=== PATIENT | female | born 1960 | race Hispanic/Latino ===

== ENCOUNTER 2016-08-28 11:09 | Outpatient (CLI) | payer MEDICAID ==
[2016-08-28 12:20] LABS: Blood Urea Nitrogen 16 mg/dL (7-17)
--- NOTE | 2016-08-28 15:39 | Cat Scan Report ---
CRANIAL CT WITH AND WITHOUT CONTRAST: HISTORY: Breast cancer with headache and multiple falls. FINDINGS: There is an area of encephalomalacia in the left posterior parietal lobe with ipsilateral ventriculomegaly ex-vacuo involving the occipital horn. This is unchanged compared to a study on February 18, 2015 and contains a persistent area of central calcification. No enhancement is seen after contrast. There are no additional enhancing masses within the brain parenchyma. No shift of the midline is seen. The ventricles are otherwise normal. There is no evidence of hemorrhage. The posterior fossa is normal. There are no extra-axial collections. The calvarium and visualized paranasal sinuses are unremarkable. IMPRESSION: 1. Chronic left posterior parietal infarct, stable since the previous study. 2. No evidence of metastatic disease.
== END 2016-08-28 11:10 | disposition home or self-care (01) ==
LOC: CT 11:09
PROVIDERS: ATTEND Internal Medicine Hematology & Oncology
DX: C50.111 Malignant neoplasm of central portion of right female breast (principal); R51 Headache; Z91.81 History of falling
CPT/HCPCS: 36415; 70470; 82565; 84520; Q9967

== ENCOUNTER 2017-02-16 12:49 | Outpatient (CLI) | payer MEDICAID ==
--- NOTE | 2017-02-18 07:38 | Vascular Lab Report ---
LOWER EXTREMITY VENOUS DUPLEX: REASON FOR EXAM: Swelling the lower extremities. COMMENTS ON THE RIGHT: All veins visualized are freely compressible without evidence of internal echogenicity. Flow is spontaneous and phasic throughout. COMMENTS ON THE LEFT: All veins visualized are freely compressible without evidence of internal echogenicity. Flow is spontaneous and phasic throughout. IMPRESSION: No evidence of acute or chronic deep venous thrombosis in either lower extremity.
== END 2017-02-16 12:50 | disposition home or self-care (01) ==
LOC: SPVWC 12:49
PROVIDERS: ATTEND Internal Medicine
DX: M79.604 Pain in right leg (principal); M79.605 Pain in left leg; M79.89 Other specified soft tissue disorders; J44.9 Chronic obstructive pulmonary disease, unspecified; J45.909 Unspecified asthma, uncomplicated; E78.00 Pure hypercholesterolemia, unspecified; F32.9 Major depressive disorder, single episode, unspecified; F17.210 Nicotine dependence, cigarettes, uncomplicated
CPT/HCPCS: 93970

== ENCOUNTER 2017-08-04 07:13 | Outpatient (CLI) | payer MEDICAID ==
--- NOTE | 2017-08-04 12:22 | Magnetic Resonance Report ---
MRI LUMBAR SPINE WITHOUT CONTRAST HISTORY: Lumbosacral spondylosis, radiculopathy. TECHNIQUE: axial T1, T2. sagittal T1,T2, STIR. COMPARISON: none. FINDINGS: The conus terminates at L1-2. No signal abnormality or mass. The cauda equina is within normal limits. No central canal stenosis. Normal height and alignment of the lumbar vertebra. The facet joints are in appropriate relationship. Normal bone marrow signal. No acute fracture or suspicious bone lesion. Mild disc desiccation without significant narrowing is noted throughout the lumbar region. The paraspinal soft tissues are unremarkable. L1-2: Within normal limits. L2-3: Within normal limits. L3-4: Within normal limits. L4-5: Within normal limits. L5-S1: Within normal limits. IMPRESSION: There is mild multilevel disc desiccation and minimal facet arthropathy. No evidence for significant bulging disc, herniation, central canal stenosis or neural foraminal impingement.
== END 2017-08-04 07:14 | disposition home or self-care (01) ==
LOC: MRI 07:13
PROVIDERS: ATTEND General Practice
DX: M47.27 Other spondylosis with radiculopathy, lumbosacral region (principal); M12.88 Other specific arthropathies, not elsewhere classified, other specified site; E78.00 Pure hypercholesterolemia, unspecified; J44.9 Chronic obstructive pulmonary disease, unspecified; K21.9 Gastro-esophageal reflux disease without esophagitis; J45.909 Unspecified asthma, uncomplicated
CPT/HCPCS: 72148

== ENCOUNTER 2018-02-15 09:20 | Outpatient (CLI) | payer MEDICAID ==
--- NOTE | 2018-02-16 10:20 | Vascular Lab Report ---
LOWER EXTREMITY ARTERIAL DUPLEX: REASON FOR EXAM: Peripheral arterial disease. COMMENTS ON THE RIGHT: Triphasic waveforms are seen proximally. Triphasic waveforms are seen distally. No significant velocity gradients are identified. No significant plaque is identified. Findings are consistent with normal perfusion. Findings are consistent with the ability to heal distal wounds. COMMENTS ON THE LEFT: Triphasic waveforms are seen proximally. Triphasic waveforms are seen distally. No significant velocity gradients are identified. No significant plaque is identified. Findings are consistent with normal perfusion. Findings are consistent with the ability to heal distal wounds. IMPRESSION: RIGHT: Essentially normal arterial flow. LEFT:Essentially normal arterial flow.
== END 2018-02-15 09:21 | disposition home or self-care (01) ==
LOC: VAS 09:20
PROVIDERS: ATTEND Internal Medicine
DX: I73.9 Peripheral vascular disease, unspecified (principal); F32.9 Major depressive disorder, single episode, unspecified; F41.9 Anxiety disorder, unspecified; F17.200 Nicotine dependence, unspecified, uncomplicated; E78.00 Pure hypercholesterolemia, unspecified; J43.9 Emphysema, unspecified; K21.9 Gastro-esophageal reflux disease without esophagitis; M19.90 Unspecified osteoarthritis, unspecified site; Z90.11 Acquired absence of right breast and nipple
CPT/HCPCS: 93925

== ENCOUNTER 2018-04-30 12:10 | Outpatient (CLI) | payer MEDICAID ==
--- NOTE | 2018-04-30 17:20 | Cat Scan Report ---
FINAL REPORT EXAM: CT ABDOMEN PELVIS W CON HISTORY: BREAST CANCER TECHNIQUE: CT examination of the ABDOMEN after IV contrast CT examination of the PELVIS after IV contrast PRIORS: None. FINDINGS: Nonspecific slight patchy density in the right anterior subpleural location. Slight degenerative change in the regional skeleton. Chronic appearing nonspecific smoothly marginated ossicle adjacent to the anterior margin of the left acetabulum. No evidence of acute fracture. No definite focal osseous lesion. Normal-appearing liver, gallbladder, adrenals, pancreas, and spleen. Intact normal caliber abdominal aorta with moderate calcified atherosclerotic plaque. Normal caliber IVC. Normal-appearing kidneys and ureters. Small fat containing midline ventral hernia just inferior to the umbilicus. Transverse dimension 21 mm. No retroperitoneal adenopathy. No evidence of mesenteric mass. Normal-appearing stomach and duodenum. No small bowel distention in the abdomen and pelvis. No pelvic free fluid. Normal-appearing urinary bladder, uterus, adnexae, and rectum. No gross ascites, free air, or colonic distention. Normal-appearing cecum, terminal ileum, and appendix. Minimal sigmoid diverticulosis in proximal sigmoid colon. No evidence of acute inflammation. IMPRESSION: No CT evidence of mass or adenopathy Nonspecific slight patchy subpleural density in the anterior right upper lobe may be scar or atelectasis. Small fat containing midline ventral hernia just inferior to the umbilicus Minimal proximal sigmoid diverticulosis
--- NOTE | 2018-04-30 17:29 | Cat Scan Report ---
FINAL REPORT EXAM: CT CHEST W CON HISTORY: BREAST CANCER TECHNIQUE: CT examination of the chest after IV contrast PRIORS: None. FINDINGS: Absent breast tissue bilaterally. Normal cardiac size without pericardial effusion. Intact normal caliber thoracic aorta. Normal-appearing esophagus. No hilar mass or mediastinal adenopathy. The visualized pulmonary arteries are diffusely patent bilaterally. There is no filling defect to suggest PE. Slight degenerative change in the regional skeleton. No evidence of acute fracture or significant osseous lesion. Bilateral lung apex subpleural chronic appearing pneumatoceles, relatively unchanged from 2016. No pneumothorax or pleural effusion. No focal pulmonary consolidation. No evidence of lung mass or pulmonary nodule. Nonspecific slight subpleural interstitial density is noted in the anterior aspect of the right upper lobe and right middle lobe. This may be scarring or atelectasis. It is new from 2016 and may reflect pneumonitis. IMPRESSION: New slight subpleural interstitial and patchy density in the anterior right middle lobe and right upper lobe may be scar or atelectasis. Differential includes pneumonitis No CT evidence of mass or adenopathy
== END 2018-04-30 12:11 | disposition home or self-care (01) ==
LOC: CT 12:10
PROVIDERS: ATTEND Internal Medicine Hematology & Oncology
DX: C50.111 Malignant neoplasm of central portion of right female breast (principal); J18.9 Pneumonia, unspecified organism; K57.90 Diverticulosis of intestine, part unspecified, without perforation or abscess without bleeding; K43.9 Ventral hernia without obstruction or gangrene; E78.00 Pure hypercholesterolemia, unspecified; J43.9 Emphysema, unspecified; K21.9 Gastro-esophageal reflux disease without esophagitis; M19.90 Unspecified osteoarthritis, unspecified site; E03.9 Hypothyroidism, unspecified; F17.210 Nicotine dependence, cigarettes, uncomplicated; Z90.89 Acquired absence of other organs; Z90.12 Acquired absence of left breast and nipple
CPT/HCPCS: 71260; 74177; Q9967

== ENCOUNTER 2018-05-06 10:10 | Day surgery (SDC) | payer MEDICAID ==
[2018-05-06] MEDS ORDERED: ANCEF/STERILE WATER 2 GM/20 ML IV NR (12:00)
[2018-05-06] MEDS ORDERED: LACTATED RINGERS 1,000 ML ONE (12:45)
[2018-05-06] MEDS ORDERED: VERSED IV NR (13:00)
[2018-05-06] MEDS ORDERED: LACTATED RINGERS 1,000 ML IV SCH (13:00)
[2018-05-06] MEDS ORDERED: SUBLIMAZE IV PRN (13:23)
--- NOTE | 2018-05-06 13:23 | Anesthesia Day of Surgery ---
Anesthesia Day of Surgery - Day of Surgery Patient Examined: Yes Patient H&P Reviewed: Yes Patient is NPO: Yes
--- NOTE | 2018-05-06 13:23 | Anesthesia Consultation ---
Anesthesia Consult and Med Hx Date of service: 05/06/18 - Airway Anesthetic Teeth Evaluation: Poor (multiple chipped teeth and many have "fallen out") ROM Head & Neck: Adequate Mental/Hyoid Distance: Adequate Mallampati Class: Class II Intubation Access Assessment: Probably Good - Pulmonary Exam CTA: Yes - Cardiac Exam Cardiac Exam: RRR - Pre-Operative Health Status ASA Pre-Surgery Classification: ASA3 Proposed Anesthetic Plan: MAC - Pulmonary Hx Smoking: Yes (CIGARETTES 1 PPD X 47 YRS, QUIT WHILE GOING THROUGH [place]) Hx Asthma: Yes (used inhaler this morning) COPD: Yes Home Oxygen Therapy: No - Cardiovascular System Hx Heart Attack/AMI: No Hx Cardia Arrhythmia: No - Central Nervous System Hx Seizures: No CVA: No Hx Back Pain: Yes Hx Psychiatric Problems: Yes (anxiety/depression) - Gastrointestinal Hx Gastroesophageal Reflux Disease: Yes (asymptomatic today) - Endocrine Hx Renal Disease: No Hx Liver Disease: No Hx Insulin Dependent Diabetes: No Hx Non-Insulin Dependent Diabetes: No Hx Hypothyroidism: Yes - Other Systems Hx Alcohol Use: Yes (OCCAS) Hx Substance Use: No Hx Cancer: Yes (breast) Hx Obesity: No - Additional Comments Anesthesia Medical History Comments: PMH sjogren's syndrome, COPD/asthma, 50pk yr smoking, hypothyroidism, GERD, fibromyalgia. No hx anesthetic complications.
[2018-05-06] MEDS ORDERED: DIPRIVAN 10 MG/ML IV ONE (14:51)
[2018-05-06] MEDS ORDERED: SUBLIMAZE ONE (14:51)
[2018-05-06] MEDS ORDERED: XYLOCAINE MPF 2% ONE (14:53)
--- NOTE | 2018-05-06 15:09 | Short Stay Summary ---
Short Stay Documentation Date of service: 05/06/18 - History H&P: obtained from office - Allergies and Medications Current Medications: Allergies No Known Allergies Allergy (Verified 05/03/18 16:10) Home Medications Medication Instructions Recorded Confirmed Last Taken Type ALBUTEROL NEB's [Proventil] 2.5 mg IH TID PRN 05/03/18 05/03/18 Unknown History Albuterol Sulfate [Ventolin HFA] 2 puff IH Q4H PRN 05/03/18 05/06/18 05/06/18 08 :45 History Cholecalciferol (Vitamin D3) 50,000 units PO QWEEK 05/03/18 05/03/18 Unknown History [Vitamin D3] Fluticasone [Flonase] 1 spray NS QDAY 05/03/18 05/03/18 Unknown History Fluticasone/Salmeterol [Advair 1 each IH DAILY 05/03/18 05/06/18 05/06/18 09:30 History 250-50 Diskus] Gabapentin [Gralise] 600 mg PO QDAY 05/03/18 05/03/18 Unknown History Lactulose 10 mg PO DAILY 05/03/18 05/03/18 Unknown History Letrozole (Nf) [Femara (Nf)] 2.5 mg PO QDAY 05/03/18 05/03/18 Unknown History Levothyroxine [Synthroid] 25 mcg PO QAM 05/03/18 05/06/18 05/06/18 08:00 History PARoxetine [Paxil] 20 mg PO DAILY 05/03/18 05/06/18 05/06/18 08:00 History RX: ALPRAZolam [Xanax TAB] 1 mg PO PRN PRN 05/03/18 05/06/18 05/06/18 09:30 History RX: Diclofenac Sodium 100 gm TP PRN PRN 05/03/18 05/03/18 Unknown History RX: Levothyroxine Sodium 200 mcg PO QAM 05/03/18 05/06/18 05/06/18 08:00 History RX: hydrOXYzine HCl [Hydroxyzine 25 mg PO DAILY 05/03/18 05/03/18 Unknown History HCl] cloNIDine [Catapres] 0.1 mg PO DAILY 09/17/18 09/20/18 09/18/18 History oxyCODONE /ACETAMINOPHEN [Percocet 1 tab PO Q6HR PRN 05/03/18 05/03/18 Unknown History 5/325] Active Medications Fentanyl (Sublimaze) 50 mcg IV Q15MIN PRN PRN Reason: Pain , Severe (7-10) Stop: 05/07/18 06:22 Lactated Ringer's (Lactated Ringers) 1,000 mls @ 100 mls/hr IV DIRECT MIGUEL Last Admin: 05/06/18 13:02 Dose: 100 mls/hr Midazolam HCl (Versed) 2 mg IV PREOP NR Stop: 05/06/18 23:59 Last Admin: 05/06/18 13:06 Dose: 2 mg - Brief post op/procedure progress note Date of procedure: 05/06/18 Pre-op diagnosis: Left port with central venous access not indicated Post-op diagnosis: same Procedure: Left port removal Anesthesia: MAC Findings: Removal of left port in its entirety Surgeon: OUMOU MURCIA Estimated blood loss: minimal Pathology: none Specimen disposition: discarded Condition: stable - Disposition Condition at discharge: Good Disposition: DC-01 TO HOME OR SELFCARE Short Stay Discharge Plan Activity: other (no heavy lifting) Diet: regular Wound: other (may shower in 48 hours; no baths; do not rub incision) Follow up with: ETELVINA QUINN MD [Primary Care Provider] - 7 Days OUMOU MURCIA MD [Staff Physician] - 7 Days
--- NOTE | 2018-05-06 15:13 | Operative Report ---
Operative Report Operative Report: Date of Service: May 06, 2018 Properative diagnosis: Left port with central venous access not indicated Postoperative diagnosis: Same Procedure: Left port removal Surgeon: Bridgette Pena MD Anesthesia: Local MAC Findings: Removal of left port in its entirety Complications: None Drain: None Disposition: PACU in good condition Indications for operative procedure: This is a 58-year-old lady with a personal history of bilateral breast cancer. Patient has completed neoadjuvant chemotherapy and central venous access no longer indicated. Patient wished to proceed with port removal. Procedure in detail: Patient was taken to the operating procedure room. She was laid supine. Local MAC anesthesia was administered. The port was identified of the left chest.The left chest was prepped and draped in the normal sterile operative fashion. The skin was anesthetized with 1% lidocaine mix with quarter percent Marcaine. The prior port incision was opened with a 15 blade knife and taken down to the subcutaneous tissues. The port was encountered. The catheter was encountered and was appropriately dissected free and removed in its entirety. Then proceed with port removal with dissection of scar tissue around the port. The port was removed in its entirety without any complications. Hemostasis was obtained. The subcutanoeus tisses were brought together and closed with interrupted 3-0 Vicryl followed by closing of the skin with a running 4-0 Monocryl. She tolerated the procedure very well and was transferred to PACU in good condition.
[2018-05-06] MEDS ORDERED: XYLOCAINE 1% 20 mL ONE (15:19)
[2018-05-06] MEDS ORDERED: MARCAINE 0.25% INFILTRATI ONE ×2 (15:20→15:29)
[2018-05-06] MEDS ORDERED: VERSED IV ONE (15:22)
[2018-05-06] MEDS ORDERED: XYLOCAINE 1% 20 mL INFILTRATI ONE (15:29)
[2018-05-06 16:28] VITALS: BP 101/56
== END 2018-05-06 16:50 | disposition home or self-care (01) ==
LOC: OR 10:10
PROVIDERS: ATTEND Surgery
DX: Z45.2 Encounter for adjustment and management of vascular access device (principal); D72.829 Elevated white blood cell count, unspecified; E78.00 Pure hypercholesterolemia, unspecified; J43.9 Emphysema, unspecified; F17.210 Nicotine dependence, cigarettes, uncomplicated; K21.9 Gastro-esophageal reflux disease without esophagitis; M19.90 Unspecified osteoarthritis, unspecified site; E03.9 Hypothyroidism, unspecified; F32.9 Major depressive disorder, single episode, unspecified; F41.9 Anxiety disorder, unspecified; Z72.89 Other problems related to lifestyle; Z85.3 Personal history of malignant neoplasm of breast; Z79.899 Other long term (current) drug therapy; Z90.13 Acquired absence of bilateral breasts and nipples; Z98.51 Tubal ligation status; Z98.891 History of uterine scar from previous surgery
CPT/HCPCS: 36590; 88302; J0690; J2250; J2704; J3010; J7120

== ENCOUNTER 2019-01-27 14:06 | Outpatient (CLI) | payer MEDICAID ==
--- NOTE | 2019-01-27 16:17 | Mammography Report ---
BONE DEXA:01/27/19 14:06:00 CLINICAL: Postmenopausal.History of breast cancer status post bilateral mastectomy and on an aromatase inhibitor. TECHNIQUE: Two site bone DEXA performed on an Hologic scanner. FINDINGS: The average BMD of the lumbar spine L1-L4 is 0.812g/cm squared with a T-score of -2.1 and a Z-score of -1.0. The average BMD of the left hip is 0.773g/cm squared with a T-score of -1.4 and a Z-score of -0.6. The lateral neck BMD is 0.595g/cm squared with a T score of -2.3 and a Z score of -1.2 IMPRESSION: WHO classification: Osteopenia with increased fracture risk based on both lumbar spine and left femoral neck measurements. RECOMMENDATION: Clinical correlation and routine screening. DEFINITIONS: BMD = Bone Mineral Density T-score = BMD related to mean peak bone mass of young adult (mean expressed in Standard Deviation) Z-score = Age matched BMD expressed in SD World Health Organization (WHO) Diagnostic Criteria Normal T-score > -1 SD Osteopenia T-score between -1 and -2.4 SD Osteoporosis T-score -2.5 SD or below NOTE: BMD is not the only risk factor for fracture. One should also consider factors such as the patient's age, risk of falling, previous osteoporotic fracture, family history of osteoporotic fractures, current smoker, and low body weight. Z-scores are not calculated if >80 years of age.
== END 2019-01-27 14:07 | disposition home or self-care (01) ==
LOC: SPVWC 14:06
PROVIDERS: ATTEND Internal Medicine Hematology & Oncology
DX: M85.88 Other specified disorders of bone density and structure, other site (principal); C50.111 Malignant neoplasm of central portion of right female breast; E78.00 Pure hypercholesterolemia, unspecified; J43.9 Emphysema, unspecified; Z78.0 Asymptomatic menopausal state; Z79.811 Long term (current) use of aromatase inhibitors; Z90.89 Acquired absence of other organs
CPT/HCPCS: 77080

== ENCOUNTER 2020-08-14 07:53 | Outpatient (CLI) | payer MEDICAID ==
--- NOTE | 2020-08-14 10:41 | Magnetic Resonance Report ---
MRI BRAIN 08/14/2020 INDICATION / CLINICAL INFORMATION: MEMORY LOSS. TECHNIQUE: Multiplanar, multisequence MR images of the brain were obtained. COMPARISON: CT brain 08/28/2016 FINDINGS: BRAIN / INTRACRANIAL CONTENTS: Unenhanced MR images of the brain were obtained and compared to a prio r CT brain from 08/28/2016. There is no evidence of acute abnormality. There is a focal 1.5 cm area of cortical encephalomalacia in the left parieto-occipital cortex, associated with some evidence of calcification, similar to the appearance on the prior CT. There is no evidence of acute ischemic injury, hemorrhage, or mass. There are no abnormal extra-axial fluid collections. Ventricles and sulci are normal in size and shape. EXTRACRANIAL: Unremarkable CRANIOCERVICAL JUNCTION: No significant abnormality. VASCULAR FLOW-VOIDS: No significant abnormality. IMPRESSION: No acute abnormality. Chronic left occipital cortical encephalomalacia, consistent with prior brain injury or ischemia. Dys trophic calcification noted on the earlier CT scan corresponds to susceptibility alteration on MRI as would be expected. Signer Name: Basilio Kaminski MD Signed: 08/14/2020 10:37 AM Workstation Name: [id number]
== END 2020-08-14 07:54 | disposition home or self-care (01) ==
LOC: MRI 07:53
PROVIDERS: ATTEND Internal Medicine
DX: R41.9 Unspecified symptoms and signs involving cognitive functions and awareness (principal); G31.09 Other frontotemporal neurocognitive disorder
CPT/HCPCS: 70551

== ENCOUNTER 2020-09-06 08:25 | Outpatient (CLI) | payer MEDICAID ==
[2020-09-06 10:14] LABS: Blood Urea Nitrogen 16 mg/dL (7-17)
--- NOTE | 2020-09-06 12:34 | Cat Scan Report ---
CT CHEST, ABDOMEN, AND PELVIS WITH IV CONTRAST INDICATION: BREAST CANCER. TECHNIQUE: Axial CT images were obtained through the chest, abdomen, and pelvis with IV contrast. All CT scans a t this location are performed using CT dose reduction for ALARA by means of automated exposure contro l. COMPARISON: 04/30/2018 FINDINGS: HEART: No significant change. THORACIC AORTA: No significant change with mild scattered atherosclerotic calcification. MEDIASTINUM and STELLA: No significant abnormality. LUNGS: Biapical pleural thickening with prominent pleural-based thickening along the anterior aspect of the right upper lobe, unchanged.. PLEURA: No change, as above. No pneumothorax. ADDITIONAL CHEST FINDINGS: Bilateral mastectomy.. LIVER: No significant abnormality. GALLBLADDER: No significant abnormality. BILE DUCTS: No significant abnormality. PANCREAS: No significant abnormality. SPLEEN: No significant abnormality. ADRENALS: No significant abnormality. RIGHT KIDNEY and URETER: No significant abnormality. LEFT KIDNEY and URETER: No significant abnormality. STOMACH and SMALL BOWEL: No significant abnormality. COLON: No significant abnormality. Few colonic diverticula APPENDIX: Not well identified. PERITONEUM: No free fluid. No free air. No fluid collection. LYMPH NODES: No significant adenopathy. AORTA and ARTERIES: Severe atherosclerotic calcification throughout much of the abdominal aorta. No a neurysm appreciated at this time.. IVC and VEINS: No significant abnormality. URINARY BLADDER: No significant abnormality. REPRODUCTIVE ORGANS: No significant abnormality. ADDITIONAL FINDINGS: Small fat-containing periumbilical hernia measuring about 2.4 cm in diameter.. SKELETAL SYSTEM: No significant abnormality. IMPRESSION: No convincing evidence of metastatic disease. No significant change when compared to the prior exam f rom 04/30/2018. Signer Name: Jason Babcock MD Signed: 09/06/2020 12:28 PM Workstation Name: [id number]
--- NOTE | 2020-09-06 12:40 | Nuclear Medicine Report ---
NUCLEAR MEDICINE BONE SCAN, WHOLE BODY INDICATION: BREAST CANCER. TECHNIQUE: 26.1 mCi of Tc-99m MDP were injected IV. Whole body images were obtained. COMPARISON: Bone scan dated 02/07/2016. FINDINGS: Skeletal Structures: There is uptake at the sternomanubrial junction which is likely related to degen erative change. This was present previously. There is uptake at the costochondral junction of the fir st rib bilaterally as well as in the AC joints bilaterally characteristic of degenerative type change . Skeletal Lesions: None. Soft Tissues: Normal. Kidneys: Normal, symmetric activity. Additional Findings: None. IMPRESSION: 1. No metastatic disease is identified. The uptake at the sternomanubrial junction, ends of the first ribs and in the AC joints is all likely degenerative.. Signer Name: Daryl Santiago MD Signed: 09/06/2020 12:34 PM Workstation Name: [id number]
== END 2020-09-06 08:26 | disposition home or self-care (01) ==
LOC: NM 08:25
PROVIDERS: ATTEND Internal Medicine Hematology & Oncology
DX: C50.111 Malignant neoplasm of central portion of right female breast (principal); D72.829 Elevated white blood cell count, unspecified; K57.30 Diverticulosis of large intestine without perforation or abscess without bleeding; I70.0 Atherosclerosis of aorta; K42.9 Umbilical hernia without obstruction or gangrene
CPT/HCPCS: 36415; 71260; 74177; 78306; 82565; 84520; A9503; Q9967

== ENCOUNTER 2020-10-02 06:00 | Day surgery (SDC) | payer MEDICAID ==
[2020-09-26 11:59] LABS: Hematocrit 41.6 % (30.3-42.9); Hemoglobin 14.1 gm/dl (10.1-14.3); Mean Corpuscular HGB Conc 34 % (30-34); Mean Corpuscular Volume 88 fl (79-97); Platelet Count 299 K/mm3 (140-440); Red Blood Count 4.72 M/mm3 (3.65-5.03); Red Cell Distribution Width 14.4 % (13.2-15.2)
[2020-09-26 12:25] LABS: Alanine Aminotransferase 31 units/L (7-56); Albumin 4.4 g/dL (3.9-5); Blood Urea Nitrogen 15 mg/dL (7-17); Calcium 9.7 mg/dL (8.4-10.2); Hemolysis Index 3
[2020-09-26 12:27] LABS: BUN/Creatinine Ratio 30
[~2020-10-02 06:00] MED LIST: ACETAMINOPHEN 500 MG TAB PO SCH; ALBUTEROL 2.5 MG/3 ML NEBU IH PRN; GABAPENTIN 300 MG CAP PO NR; LACTATED RINGERS 1,000 ML IV SCH; MIDAZOLAM 2 MG/2 ML INJ IV NR; SCOPOLAMINE TRANSDERMAL PATCH 72 HR TD NR
[2020-10-02] MEDS ORDERED: BACTERIOSTATIC SODIUM CHLORIDE 0.9% 30 ML VIAL INFILTRATI ONE (06:17)
[2020-10-02] MEDS ORDERED: ceFAZolin/STERILE WATER 2 GM/20 ML SYRINGE IV NR (07:00)
[2020-10-02] MEDS ORDERED: fentaNYL 100 MCG/2 ML INJ IV NR (07:07)
[2020-10-02] MEDS ORDERED: ONDANSETRON 4 MG/2 ML INJ IV PRN (07:12)
[2020-10-02] MEDS ORDERED: fentaNYL 100 MCG/2 ML INJ IV PRN (07:12)
--- NOTE | 2020-10-02 07:15 | Anesthesia Consultation ---
Anesthesia Consult and Med Hx Date of service: 10/02/20 - Airway Anesthetic Teeth Evaluation: Edentulous ROM Head & Neck: Adequate Mental/Hyoid Distance: Adequate Mallampati Class: Class I Intubation Access Assessment: Good - Pulmonary Exam CTA: Yes - Cardiac Exam Cardiac Exam: RRR - Pre-Operative Health Status ASA Pre-Surgery Classification: ASA3 Proposed Anesthetic Plan: General Nerve Block: TAP - Pulmonary Hx Smoking: Yes (>50 pk yr hx) Hx Asthma: Yes (albuterol prn) COPD: Yes (albuterol prn) Hx Sleep Apnea: No (ROSS PRE SCREEN LOW RISK) - Cardiovascular System Hx Hypertension: No Hx Heart Attack/AMI: No Hx Percutaneous Transluminal Coronary Angioplasty (PTCA): No Hx Cardia Arrhythmia: No - Central Nervous System Hx Neuromuscular Disorder: (Sjogren's Syndrome) CVA: Yes ("brain bleeding" >10yrs ago; no residual defecits) Hx Back Pain: Yes (fibromyalgia) Hx Psychiatric Problems: Yes (anxiety/depression; took xanax this morning) - Gastrointestinal Hx Gastroesophageal Reflux Disease: Yes (took PPI this morning) - Endocrine Hx Renal Disease: No Hx Liver Disease: No Hx Insulin Dependent Diabetes: No Hx Non-Insulin Dependent Diabetes: No Hx Hypothyroidism: Yes - Other Systems Hx Cancer: Yes (hx breast ca) - Additional Comments Anesthesia Medical History Comments: Hx Sjogren's syndrome. Hx mild PONV. Prophylactic albuterol neb given in preop.
--- NOTE | 2020-10-02 07:15 | Anesthesia Day of Surgery ---
Anesthesia Day of Surgery - Day of Surgery Patient Examined: Yes Patient H&P Reviewed: Yes Patient is NPO: Yes
[2020-10-02] MEDS ORDERED: LIDOCAINE (1%) 10 MG/1 ML VIAL 20 ML MDV ONE (07:18)
[2020-10-02] MEDS ORDERED: fentaNYL 100 MCG/2 ML INJ ONE (07:18)
[2020-10-02] MEDS ORDERED: HYDROmorphone 1 MG/1 ML INJ ONE (07:18)
[2020-10-02] MEDS ORDERED: BUPIVACAINE/PF (0.5%) 5 MG/1 ML 30 ML VIAL INFILTRATI ONE (07:18)
[2020-10-02] MEDS ORDERED: propofoL 200 MG/20 ML VIAL IV ONE (07:18)
[2020-10-02] MEDS ORDERED: BUPIVACAINE-EPINEPHRINE/PF 0.5%-1:200,000 (30 ML) VIAL INFILTRATI ONE (07:20)
[2020-10-02] MEDS ORDERED: SODIUM CHLORIDE 0.9% 500 ML 500 ML ONE (07:20)
[2020-10-02] MEDS ORDERED: dexAMETHasone 4 MG/ML VIAL ONE (07:20)
[2020-10-02] MEDS ORDERED: ONDANSETRON 4 MG/2 ML INJ ONE (08:30)
[2020-10-02] MEDS ORDERED: WATER FOR IRRIG STERILE 1,500 ML BOTTLE IR ONE (08:30)
[2020-10-02] MEDS ORDERED: GLYCOPYRROLATE 0.4 MG/2 ML INJ ONE (08:30)
[2020-10-02] MEDS ORDERED: NEOSTIGMINE 10MG/10 ML INJ MDV ONE (08:30)
[2020-10-02] MEDS ORDERED: LIDOCAINE PF 100 MG/5 ML (CARDIAC SYRINGE) IV ONE (08:35)
[2020-10-02] MEDS ORDERED: ROCURONIUM 50 MG/5 ML INJ IV ONE (08:35)
[2020-10-02] MEDS ORDERED: SUCCINYLCHOLINE CHLORIDE 200 MG/10 ML INJ MDV ONE (08:36)
[2020-10-02] MEDS ORDERED: PHENYLEPHRINE/NS 1,000 MCG/10 ML SYRINGE (OR USE) IV ONE (08:36)
[2020-10-02] MEDS ORDERED: dexAMETHasone 20 MG/5 ML VIAL ONE (08:36)
--- NOTE | 2020-10-02 10:12 | Short Stay Summary ---
Short Stay Documentation Date of service: 10/02/20 - History Principal diagnosis: incisional hernia H&P: obtained from office - Allergies and Medications Current Medications: Allergies No Known Allergies Allergy (Verified 05/03/18 16:10) Home Medications Medication Instructions Recorded Confirmed Last Taken Type ALPRAZolam [Xanax TAB] 1 mg PO BID 05/03/18 09/25/20 10/02/20 05:00 History Albuterol Sulfate [Ventolin HFA] 2 puff IH Q4H PRN 05/03/18 09/25/20 1 Month Ago History ~09/01/20 Cholecalciferol (Vitamin D3) 50,000 units PO QWEEK 05/03/18 09/25/20 1 Month Ago History [Vitamin D3] ~09/01/20 Fluticasone [Flonase] 1 spray NS QDAY 05/03/18 09/25/20 10/01/20 History Letrozole (Nf) [Femara (Nf)] 2.5 mg PO QDAY 05/03/18 09/25/20 10/02/20 05:00 History Levothyroxine Sodium 225 mcg PO QAM 05/03/18 09/25/20 10/02/20 05:00 History Acetaminophen/Codeine [Tylenol 1 tab PO Q4HR PRN 09/25/20 09/25/20 10/01/20 History /Codeine # 3 tab] Cyclobenzaprine [Flexeril] 10 mg PO TID PRN 09/25/20 09/25/20 10/02/20 05:00 History FLUoxetine [PROzac] 20 mg PO QDAY 09/25/20 09/25/20 10/02/20 05:00 History Linaclotide [Linzess] 145 mcg PO QDAY 09/25/20 09/25/20 10/02/20 05:00 History Pantoprazole [Protonix] 40 mg PO QDAY 09/25/20 09/25/20 10/02/20 05:00 History Varenicline Tartrate [Chantix] 1 mg PO DAILY 09/25/20 09/25/20 10/01/20 History Active Medications Acetaminophen (Acetaminophen 500 Mg Tab) 1,000 mg PO PREOP MIGUEL Stop: 10/02/20 23:00 Last Admin: 10/02/20 06:55 Dose: 1,000 mg Documented by: Albuterol (Albuterol 2.5 Mg/3 Ml Nebu) 2.5 mg IH PREOP PRN PRN Reason: Wheezing Stop: 10/02/20 23:00 Last Admin: 10/02/20 07:00 Dose: 2.5 mg Documented by: Cefazolin Sodium (Cefazolin/Sterile Water 2 Gm/20 Ml Syringe) 2 gm IV PREOP NR Stop: 10/02/20 23:00 Fentanyl (Fentanyl 100 Mcg/2 Ml Inj) 100 mcg IV ONCE NR Stop: 10/02/20 20:00 Last Admin: 10/02/20 07:31 Dose: 100 mcg Documented by: Fentanyl (Fentanyl 100 Mcg/2 Ml Inj) 50 mcg IV Q5MIN PRN PRN Reason: Pain , Severe (7-10) Stop: 10/02/20 23:00 Gabapentin (Gabapentin 300 Mg Cap) 300 mg PO PREOP NR Stop: 10/02/20 23:00 Last Admin: 10/02/20 06:55 Dose: 300 mg Documented by: Lactated Ringer's (Lactated Ringers) 1,000 mls @ 100 mls/hr IV DIRECT MIGUEL Stop: 10/02/20 23:59 Last Admin: 10/02/20 07:00 Dose: 100 mls/hr Documented by: Midazolam HCl (Midazolam 2 Mg/2 Ml Inj) 2 mg IV PREOP NR Stop: 10/02/20 23:00 Last Admin: 10/02/20 07:31 Dose: 2 mg Documented by: Ondansetron HCl (Ondansetron 4 Mg/2 Ml Inj) 4 mg IV ONCE PRN PRN Reason: Nausea And Vomiting Stop: 10/02/20 16:00 Scopolamine (Scopolamine Transdermal Patch 72 Hr) 1 each TD PREOP NR Stop: 10/02/20 23:00 Last Admin: 10/02/20 06:50 Dose: 1 each Documented by: - Brief post op/procedure progress note Date of procedure: 10/02/20 Pre-op diagnosis: incisional hernia Post-op diagnosis: same Procedure: robotic assisted incisional hernia repair with mesh Anesthesia: GETA, other (tap block) Findings: 3 x 2cm infraumbilical incisional hernia containing incarcerated omentum and preperitoneal fat Repaired with 11.[address] composite mesh Surgeon: LESIA PINO Rail Signal Mechanic: CHACHA SIMEON Estimated blood loss: minimal Pathology: none Condition: stable - Hospital course Hospital course: Pt observed in PACU and discharged to home in stable condition - Disposition Condition at discharge: Good Disposition: DC-01 TO HOME OR SELFCARE Short Stay Discharge Plan Activity: other (see additional instructions) Diet: regular Wound: open to air, per your surgeon's advice Additional Instructions: General Surgery Patient discharge instructions You have undergone surgery to repair an abdominal hernia Diet: Regular diet Make sure to drink plenty of water and stay hydrated Activity: You are encouraged to walk and may go up and down the steps. [address]. [address] if you are taking prescription, narcotic pain medications. 2. Do not do any heavy lifting greater than 15 lbs for next 6 week 3. Wear abdominal binder at all times except during shower and sleep. Do not smoke cigarettes - this can negatively affect wound healing after surgery. Showering: You may shower tomorrow. Remove outer dressing in 2 days. Pat incision dry, do not scrub. Do not submerge incision in bathtub, pool, hottub for 2 weeks. Wound care instructions: There is glue on your incisions which will fall off on its own. Pain medications: You may use over the counter Tylenol or ibuprofen for pain. If your pain is not controlled with these medications, you have been given a prescription for Percocet. You have also been given prescription for gabapentin - take as prescribed. If you have any unused prescription pain medication, please return to your pharmacy to have is discarded. You may use ice pack to incisions to help with pain and bruising. Reasons to call Surgeons office: If you have fevers >100.4 If you are having increasing abdominal pain or vomiting If you have pain that is not controlled with prescription pain medications If you have drainage if pus or redness around the incisions. When to come back to see your Surgeon: Please call the office ([phone]) to make an appointment to see the surgeon in 2 week. Call if you have any questions. [facility] Ground floor Follow up with: ETELVINA QUINN MD [Primary Care Provider] - 7 Days LESIA PINO DO [Staff Physician] - 14 Days Prescriptions: Gabapentin 300 mg PO BID 3 Days #6 capsule oxyCODONE /ACETAMINOPHEN [Percocet 5/325] 1 tab PO Q6HR PRN #20 tablet PRN Reason: Pain , Severe (7-10)
[2020-10-02] MEDS ORDERED: oxyCODONE /ACETAMINOPHEN 5-325MG TAB PO PRN (10:30)
--- NOTE | 2020-10-02 10:46 | Post Anesthesia Evaluation ---
- Post Anesthesia Evaluation Patient Participated: Yes Airway Patent: Yes Stable Respiratory Function: Yes Nausea/Vomiting: No Temp > 96.8F: Yes Pain Manageable: Yes Adequeate Hydration: Yes Anesthesia Complications: No Block Receding Appropriately: Yes (block for post op analgesia)
[2020-10-02 10:57] VITALS: BP 108/53
--- NOTE | 2020-10-02 13:06 | Operative Report ---
Operative Report Operative Report: Date of procedure: 10/02/20 Pre-op diagnosis: incisional hernia Post-op diagnosis: same Procedure: robotic assisted incisional hernia repair with mesh Anesthesia: REBAA, other (tap block) Findings: 3 x 2cm infraumbilical incisional hernia containing incarcerated omentum and preperitoneal fat Repaired with 11.[address] composite mesh Surgeon: LESIA PINO Urologist: CHACHA SIMEON Estimated blood loss: minimal Pathology: none Condition: stable - Hospital course Hospital course: Pt observed in PACU and discharged to home in stable condition HPI and indication: 60 yo F with hx of csection who presents to surgery clinic for evaluation of a bulge at her infraumbilical midline incision. This bulge has been present for some time and is causing pain. Patient found to have reducible incisional hernia on exam. It was recommended that the hernia be repaired. Patient is a smoker and smoking cessation was also recommended at least 2 weeks prior to surgery. She was agreeable. All risk, benefits, alternatives surgery discussed with patient questions answered. It was recommended that the hernia be repaired robotically. Alternatives such as open versus laparoscopic repair were also discussed. The patient was in agreement and consent obtained. Procedure in detail: The patient was identified in the preoperative area and taken back to the operating room and placed on the operating room table in supine position. After anesthesia was induced, both arms were tucked with all bony prominences padded appropriately. The abdomen was then prepped and draped in usual sterile fashion and a timeout was performed. The patient had a TAP block performed by anesthesia preoperatively. A trell incision was made in the left upper quadrant at Ray's point through which a Veress needle was inserted. The Veress needle position was confirmed using the saline drop test and the abdomen insufflated to 15 mmHg without incident. A 5 mm incision was made in the right upper quadrant through which a 5 mm Optiview trocar was placed under direct visualization. The abdomen was inspected and there was no underlying injury to any of the abdominal structures. The Veress needle was identified and removed. A 12 mm balloon trocar was placed in the right lateral abdomen and an 8 mm robotic trocar in the right lower quadrant under direct visualization. The 5 mm right upper quadrant trocar was replaced with an 8 mm robotic trocar under direct visualization. The patient was tilted to the left and the robot docked. A fenestrated bipolar was placed in arm #2 and a monopo lar scissor in arm #1. The surgeon was then transferred to the console. There were omental adhesions to the anterior abdominal wall in the lower midline at the site of the hernia. I first started by dissecting these adhesions in order to get better visualization of the hernia. Dissection was carried out very carefully using a combination of blunt dissection and electrocautery. During the dissection the hernia became more apparent. There was some omentum incarcerated in the hernia defect which was carefully reduced. Once all omentum was freed it was inspected and hemostasis ensured. Due to scarring of the peritoneum to the fascia, I decided to perform and IPOM repair. The hernia defect was measured at 3cm x 2cm. It was decided to fix the hernia with a 11.4 cm Bard ventralite composite mesh. The mesh along with suture material placed into the abdomen by the fast food sales assistant. The pressure in the abdomen was turned down to 8 mmHg. First the hernia defect was closed using a 0 VLoc running stitch. The mesh was then placed at the center of the hernia with the uncoated side placed against the abdominal wall. The mesh was sutured in circumfrentially using 2-0 Vloc running stitch x2. The mesh laid flat with adequate overlap of the hernia. The robot was then undocked and the surgeon scrubbed back in. The remainder of the case was performed laparoscopically. All sharp and suture material was removed under direct visualization. The 12 mm port was removed and the fascia closed with an interrupted 0-vicryl stitch using the Erick Foley device. The remaining ports were removed under direct visualization and the abdomen desufflated. The skin incisions were closed with 4-0 Monocryl subcuticular stitches and skin glue. Once the glue was dry a 4 x 4 gauze was balled up and placed at the site of the hernia and secured with a Tegaderm. At the end of the case, all sponge, instrument, sharp counts were correct 2. An abdominal binder was applied to the patient. The patient was awoken from anesthesia, extubated and taken to PACU in stable condition.
== END 2020-10-02 11:25 | disposition home or self-care (01) ==
LOC: OR 06:00
PROVIDERS: ATTEND Surgery
DX: K43.0 Incisional hernia with obstruction, without gangrene (principal); F17.210 Nicotine dependence, cigarettes, uncomplicated; Z86.19 Personal history of other infectious and parasitic diseases; G43.909 Migraine, unspecified, not intractable, without status migrainosus; J43.9 Emphysema, unspecified; K21.9 Gastro-esophageal reflux disease without esophagitis; M79.7 Fibromyalgia; M19.90 Unspecified osteoarthritis, unspecified site; E03.9 Hypothyroidism, unspecified; F32.9 Major depressive disorder, single episode, unspecified; F41.9 Anxiety disorder, unspecified; Z79.899 Other long term (current) drug therapy; Z85.3 Personal history of malignant neoplasm of breast; Z90.13 Acquired absence of bilateral breasts and nipples; Z98.51 Tubal ligation status; Z96.652 Presence of left artificial knee joint; Z98.890 Other specified postprocedural states; Z86.73 Personal history of transient ischemic attack (TIA), and cerebral infarction without residual deficits
CPT/HCPCS: 36415; 49655; 80053; 85027; C1781; J0330; J0690; J1100; J1170; J2001; J2250; J2370; J2405; J2704; J2710; J3010; J7040; J7120; S2900; U0003; 64450

== ENCOUNTER 2021-09-11 14:54 | Outpatient (CLI) | payer MEDICAID ==
--- NOTE | 2021-09-11 17:19 | Mammography Report ---
DEXA BONE DENSITY SCAN INDICATION / CLINICAL INFORMATION: ON AROMATASE INHIBITOR/ELEVATED WBC COUNT/MAL MACHELLE OF RT BRST. 61 years Female COMPARISON: None available. LUMBAR SPINE, L1-L4: - Bone mineral density (BMD) = 0.795 g/cm2. - T-score = -2.3 - Z-score = -0.9 Change (%) since most recent prior (if available): None available. RIGHT HIP, : -Not performed. LEFT HIP, TOTAL : - Bone mineral density (BMD) = 0.688 g/cm2. - T-score = -2.1 - Z-score = -1.2 Change (%) since most recent prior (if available): None available. IMPRESSION: WHO Classification: Osteopenia. Fracture Risk: Increased. Note: 10-Year Fracture Risk (FRAX) not reported. This DEXA unit lacks FRAX functionality. BMD Reporting Guidelines (ISCD, 2015) BMD Reporting in Postmenopausal Women and in Men Age 50 and Older - T-scores are preferred. - The WHO densitometric classification is applicable. BMD Reporting in Females Prior to Menopause and in Males Younger Than Age 50 - Z-scores, not T-scores, are preferred. This is particularly important in children. - A Z-score of -2.0 or lower is defined as below the expected range for age, and a Z-score above -2.0 is within the expected range for age. - Osteoporosis cannot be diagnosed in men under age 50 on the basis of BMD alone. - The WHO diagnostic criteria may be applied to women in the menopausal transition. http://www.iscd.org/official-positions/8309-cbmq-xmttxuri-positions-adult/ Signer Name: Boston Peñaloza MD Signed: 09/11/2021 5:14 PM Workstation Name: [id number]
== END 2021-09-11 14:55 | disposition home or self-care (01) ==
LOC: SPVWC 14:54
PROVIDERS: ATTEND Internal Medicine Hematology & Oncology
DX: C50.111 Malignant neoplasm of central portion of right female breast (principal); M85.88 Other specified disorders of bone density and structure, other site; D72.829 Elevated white blood cell count, unspecified; Z79.811 Long term (current) use of aromatase inhibitors
CPT/HCPCS: 77080